=== PATIENT | male | born 1945 | race Caucasian/White ===

== ENCOUNTER 2019-11-17 00:18 | Inpatient (IN) | payer MEDICARE ==
[~2019-11-17] VITALS: Ht 182.9 cm; Wt 78.0 kg
--- NOTE | 2019-11-17 00:30 | NUR ---
Patient provided urine sample, sent to lab.
--- NOTE | 2019-11-17 00:35 | NUR ---
Dr. Velasquez at bedside for MSE.
--- NOTE | 2019-11-17 00:50 | NUR ---
Pt out of ER for CT.
[2019-11-17 00:52] LABS: *BILIRUBIN,URIN NEGATIVE (NEGATIVE); *BLOOD, URINE NEGATIVE (NEGATIVE); *CLARITY,URINE CLEAR (CLEAR); *COLOR,URINE YELLOW (YELLOW); *KETONES,URINE NEGATIVE (NEGATIVE); *UROBILINOGEN,URINE 0.2 E.U./dl (NORMAL); LEUKOCYTE ESTERASE ,URINE NEGATIVE (NEGATIVE); NITRITE, URINE NEGATIVE (NEGATIVE); PH,URINE 5.5 (5.0-8.0); UGLUCOSE NEGATIVE (NEGATIVE)
[2019-11-17 00:58] LABS: *AMPHETAMINE, URINE NEGATIVE (NEGATIVE); *BARBITURATE, URINE NEGATIVE (NEGATIVE); *CANNABINOID, URINE NEGATIVE (NEGATIVE); *COCCAINE, URINE NEGATIVE (NEGATIVE); *OPIATE, URINE NEGATIVE (NEGATIVE); *PHENCYCLIDINE SCREEN,URINE NEGATIVE (NEGATIVE)
[2019-11-17 01:01] LABS: BASOPHILS # (AUTO) 0.1 K/uL (0.0-8.0); BASOPHILS % (AUTO) 0.9 % (0.0-2.0); EOSINOPHILS # (AUTO) 0.5 K/uL (0.0-0.7); EOSINOPHILS % (AUTO) 7.1 % (0.0-7.0); HEMATOCRIT 41.2 % (36.7-47.1); LYMPHOCYTES # (AUTO) 1.9 K/uL (20.0-40.0); LYMPHOCYTES % (AUTO) 25.9 % (20.5-51.5); MEAN CORPUSCULAR HEMOGLOBIN 32.8 uug (23.8-33.4); MEAN CORPUSCULAR HGB CONC 34 g/dL (32.5-36.3); MEAN CORPUSCULAR VOLUME 96.5 fL (73.0-96.2); MONOCYTES # (AUTO) 0.7 K/uL (2.0-10.0); MONOCYTES % (AUTO) 8.9 % (0.0-11.0); NEUTROPHILS # (AUTO) 4.3 K/uL (1.8-8.9); NEUTROPHILS % (AUTO) 57.2 % (38.5-71.5); PLATELET COUNT (AUTO) 252 K/uL (152-348); RED BLOOD CELL COUNT(AUTO) 4.27 MIL/uL (4.06-5.63); WHITE BLOOD COUNT (AUTO) 7.4 K/uL (3.6-10.2)
--- NOTE | 2019-11-17 01:05 | NUR ---
Pt back to ER from CT.
[2019-11-17 01:10] LABS: CARBON DIOXIDE 26 mmol/L (21-32); CHLORIDE 107 mmol/L (98-107); GLUCOSE 118 mg/dL (74-106); POTASSIUM 3.7 mmol/L (3.5-5.1); UREA NITROGEN, BLOOD 19 mg/dL (7-18)
[2019-11-17 01:13] LABS: ETHANOL < 3 MG/DL (0-0)
[2019-11-17 01:16] LABS: ALANINE AMINOTRANSFERASE 22 U/L (16-63); ALKALINE PHOSPHATASE 104 U/L (50-136); ASPARTATE AMINOTRANSFERASE 23 U/L (15-37); BILIRUBIN,DIRECT 0.1 mg/dL (0.0-0.2); BILIRUBIN,TOTAL 0.4 mg/dL (0.2-1.0); TOTAL PROTEIN, SERUM 6.8 g/dL (6.4-8.2)
[2019-11-17 01:23] LABS: ACETAMINOPHEN < 2.0 ug/mL (10-30); THYROID STIMULATING HORMONE 3.291 mIU/mL (0.358-3.740)
--- NOTE | 2019-11-17 01:30 | NUR ---
Patient medically cleared by Dr. Velasquez.
[2019-11-17] MEDS ORDERED: ARIP15TA3 PO (02:33)
[2019-11-17] MEDS ORDERED: DOCU100C36 PO (02:34)
[2019-11-17] MEDS ORDERED: HEPA500034 SUBCUT (02:34)
[2019-11-17] MEDS ORDERED: DILT-32 PO (02:34)
[2019-11-17] MEDS ORDERED: ACET-2154 PO (02:34)
--- NOTE | 2019-11-17 07:13 | NUR ---
Report given to Merlene collinshift.
--- NOTE | 2019-11-17 08:30 | NUR ---
pt transfered to mhu in stable condition.
[2019-11-17 08:45] VITALS: BP 127/62
[2019-11-17] MEDS ORDERED: ZOLPIDEM 5 MG TABLET PO PRN (09:00)
[2019-11-17] MEDS ORDERED: ACETAMINOPHEN 325 MG TABLET PO PRN (09:00)
[2019-11-17] MEDS ORDERED: MAG HYDROX/AL HYDROX/SIMETH 30 ML LIQUID UDC PO PRN (09:00)
[2019-11-17] MEDS ORDERED: BLOOD SUGAR DIAGNOSTIC 1 EACH STRIP VI ONE (09:00)
[2019-11-17] MEDS ORDERED: MAGNESIUM HYDROXIDE 30 ML LIQUID UDC PO PRN (09:00)
--- NOTE | 2019-11-17 09:00 | NUR ---
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
[2019-11-17] MEDS ORDERED: ARIPIPRAZOLE 5 MG TABLET PO SCH (09:15)
[2019-11-17] MEDS ORDERED: ESCITALOPRAM OXALATE 10 MG TABLET PO SCH (09:15)
[2019-11-17] MEDS: ARIPIPRAZOLE 5 MG TABLET PO SCH ×2 (10:29→10:33)
[2019-11-17] MEDS: ESCITALOPRAM OXALATE 10 MG TABLET PO SCH (10:33)
[2019-11-17 15:48] VITALS: BP 114/55
[2019-11-17] MEDS: DOCUSATE SODIUM 100 MG CAPSULE PO SCH (17:29)
--- NOTE | 2019-11-17 17:33 | NUR ---
patient been calm, cooperative, minimizes his symptoms, patient seen interacting with staff and other resident
[2019-11-17 20:00] VITALS: BP 104/59
--- NOTE | 2019-11-18 05:42 | NUR ---
Patient slept 5 hours. Was up a few times during the night. At the beginning of the shift, patient appeared depressed but was not willing to elaborate. Patient denied having active suicidal thoughts. Sheep Farmer noticed patient trying to get involved and give advice to the nurses on how to care for other patients. At times this patient is confused as to why he is here and what is going on. Reorientation and redirection provided. No acute issues during the night. Continuing to have safety strategies in place and round Q 15 minutes in order to provide a safe environment for this patient.
[2019-11-18 07:11] LABS: BILIRUBIN,TOTAL 0.4 mg/dL (0.2-1.0); CREATININE 1.1 mg/dL (0.6-1.3); POTASSIUM 4.1 mmol/L (3.5-5.1); TOTAL PROTEIN, SERUM 6.2 g/dL (6.4-8.2)
[2019-11-18 07:30] VITALS: BP 133/72
--- NOTE | 2019-11-18 08:00 | NUR ---
Received patient AOx3, patient in his room, quiet, no distress, patient compliant with medication, patient seen by psychiatrist , patient ate his breakfast, will continue monitor
[2019-11-18] MEDS: ARIPIPRAZOLE 5 MG TABLET PO SCH (08:21)
[2019-11-18] MEDS: ESCITALOPRAM OXALATE 10 MG TABLET PO SCH (08:22)
[2019-11-18] MEDS: DILTIAZEM HCL CD 120 MG CAP.SR.24H PO SCH (08:22)
[2019-11-18] MEDS: DOCUSATE SODIUM 100 MG CAPSULE PO SCH ×2 (08:22→17:00)
[2019-11-18] MEDS: ENSURE ENLIVE (VAN) 240 ML LIQUID PO SCH (09:00)
--- NOTE | 2019-11-18 12:05 | NUR ---
CYNDEE Initial Discharge Plan: Patient currently resides at home [address] [place] [address], [place] [address] ([phone]). Patient would like to go back home when he is ready for discharge. CYNDEE spoke with patient's sister, Lakshmi Lama ([phone]) who stated that would like patient to return home and will pick him up at time of discharge. CYNDEE will continue to work with patient, family, and MD to ensure a safe and proper discharge plan.
--- NOTE | 2019-11-18 12:46 | NUR ---
CYNDEE Family Contact: CYNDEE spoke with patient's sister, Lakshmi Lama ([phone]) who stated that would like patient to return home and will pick him up at time of discharge. SW will continue to work with patient, family, and MD to ensure a safe and proper discharge plan.
--- NOTE | 2019-11-18 13:12 | NUR ---
Firearms Report: Public Improvement Inspector completed and submitted a [employer] firearms report for 5150 danger to himself certification. A copy of report has been placed in patient chart.
[2019-11-18 16:00] VITALS: BP 132/53
--- NOTE | 2019-11-18 17:38 | NUR ---
patient been calm cooperative, pacing in hallway this afternoon, guarded, minimizes his symptoms, patient participates with group therapy and ate his meals, patient has a tendency to be intrusive and needed to be redirected, patient denies SI ans HI
[2019-11-18 20:08] VITALS: BP 130/63
[2019-11-19 07:30] VITALS: BP 103/56
[2019-11-19] MEDS: ENSURE ENLIVE (VAN) 240 ML LIQUID PO SCH (09:00)
[2019-11-19] MEDS: ESCITALOPRAM OXALATE 10 MG TABLET PO SCH (10:23)
[2019-11-19] MEDS: DILTIAZEM HCL CD 120 MG CAP.SR.24H PO SCH (10:26)
[2019-11-19] MEDS: DOCUSATE SODIUM 100 MG CAPSULE PO SCH ×2 (10:27→17:34)
[2019-11-19] MEDS ORDERED: ARIPIPRAZOLE 5 MG TABLET PO ONE (10:29)
[2019-11-19 20:00] VITALS: BP 108/54
[2019-11-20 07:30] VITALS: BP 117/65
[2019-11-20] MEDS: DILTIAZEM HCL CD 120 MG CAP.SR.24H PO SCH (09:26)
[2019-11-20] MEDS: ARIPIPRAZOLE 5 MG TABLET PO SCH (09:27)
[2019-11-20] MEDS: ESCITALOPRAM OXALATE 10 MG TABLET PO SCH (09:27)
[2019-11-20] MEDS: DOCUSATE SODIUM 100 MG CAPSULE PO SCH ×2 (09:27→17:17)
[2019-11-20] MEDS: ENSURE ENLIVE (VAN) 240 ML LIQUID PO SCH (09:28)
[2019-11-20] MEDS ORDERED: ARIPIPRAZOLE 5 MG TABLET PO ONE (10:29)
[2019-11-20 16:00] VITALS: BP 133/75
[2019-11-20 20:00] VITALS: BP 123/64
[2019-11-21 07:30] VITALS: BP 102/59
[2019-11-21] MEDS: ARIPIPRAZOLE 5 MG TABLET PO SCH ×2 (08:52→12:43)
[2019-11-21] MEDS: ESCITALOPRAM OXALATE 10 MG TABLET PO SCH (08:52)
[2019-11-21] MEDS: DOCUSATE SODIUM 100 MG CAPSULE PO SCH ×2 (08:52→16:35)
[2019-11-21] MEDS: DILTIAZEM HCL CD 120 MG CAP.SR.24H PO SCH (09:58)
[2019-11-21] MEDS: ENSURE ENLIVE (VAN) 240 ML LIQUID PO SCH (09:58)
[2019-11-21 16:00] VITALS: BP 127/55
[2019-11-21 21:28] VITALS: BP 112/56
--- NOTE | 2019-11-22 06:50 | NUR ---
Patient slept 5.30 hours last night. Refused a sleeping medication when offered. At on point , the advertising copy writer noticed patient sitting up in the bed staring at the clock on the wall for quite some time. When asked if he was okay he stated " I am just trying to figure out what time it is. I can not tell the time right now'. Patient seems a/o x 3-4, but does get forgetful and confused during the night. Continuing to monitor patient for safety and reorient patient when needed. No acute distress noted at this time.
[2019-11-22 07:30] VITALS: BP 126/66
[2019-11-22] MEDS: DOCUSATE SODIUM 100 MG CAPSULE PO SCH ×2 (08:31→16:22)
[2019-11-22] MEDS: ARIPIPRAZOLE 5 MG TABLET PO SCH ×2 (08:31→12:27)
[2019-11-22] MEDS: DILTIAZEM HCL CD 120 MG CAP.SR.24H PO SCH (08:32)
[2019-11-22] MEDS: ENSURE ENLIVE (VAN) 240 ML LIQUID PO SCH (08:34)
[2019-11-22 16:31] VITALS: BP 121/78
[2019-11-22 20:00] VITALS: BP 124/61
--- NOTE | 2019-11-23 02:44 | NUR ---
RECEIVED PATIENT IN ACTIVITY ROOM. GUARDED,MOOD LOW BUT COOPERATIVE WITH HIS CARE. DENIES SI/HI.VISUAL CHECKS MADE ON HIM FOR SAFETY. WILL CONTINUE TO MONITOR.
--- NOTE | 2019-11-23 06:51 | NUR ---
HE SLEPT FOR 7:00 HOURS.
[2019-11-23] MEDS: DOCUSATE SODIUM 100 MG CAPSULE PO SCH ×2 (08:47→17:10)
[2019-11-23] MEDS: DILTIAZEM HCL CD 120 MG CAP.SR.24H PO SCH (08:47)
[2019-11-23] MEDS: ARIPIPRAZOLE 5 MG TABLET PO SCH ×2 (08:47→12:56)
[2019-11-23] MEDS: ENSURE ENLIVE (VAN) 240 ML LIQUID PO SCH (08:48)
[2019-11-23 09:29] VITALS: BP 121/64
--- NOTE | 2019-11-23 09:58 | NUR ---
PC Hearing: Patient had his probable cause hearing today and it was upheld for grave disability.
[2019-11-23 16:00] VITALS: BP 122/56
[2019-11-23 20:00] VITALS: BP 138/58
--- NOTE | 2019-11-24 05:56 | NUR ---
Received Pt in bed sleeping, arouses easily. A+Ox2-3, pleasant and friendly on approach. Appears tired and somewhat lethargic. Pt has poor insight into the events that brought him to the hospital and states he "doesn't remember what happened, but I never wanted to kill myself." Pt is isolative and withdrawn, seclusive to his room, but denies depression or anxiety. Pt encouraged to attend groups and interact with the milieu. Denies SI/HI and verbally contracts for safety. Denies AH/VH. VS stable.
[2019-11-24 06:53] LABS: BASOPHILS # (AUTO) 0.1 K/uL (0.0-8.0); BASOPHILS % (AUTO) 0.7 % (0.0-2.0); EOSINOPHILS # (AUTO) 0.2 K/uL (0.0-0.7); EOSINOPHILS % (AUTO) 1.8 % (0.0-7.0); HEMOGLOBIN 13.9 g/dL (12.5-16.3); LYMPHOCYTES % (AUTO) 31.7 % (20.5-51.5); MEAN CORPUSCULAR HEMOGLOBIN 32.5 uug (23.8-33.4); MEAN CORPUSCULAR HGB CONC 33 g/dL (32.5-36.3); MEAN CORPUSCULAR VOLUME 98.1 fL (73.0-96.2); MONOCYTES # (AUTO) 0.9 K/uL (2.0-10.0); NEUTROPHILS # (AUTO) 5.2 K/uL (1.8-8.9); NEUTROPHILS % (AUTO) 55.8 % (38.5-71.5); PLATELET COUNT (AUTO) 322 K/uL (152-348); RED BLOOD CELL COUNT(AUTO) 4.28 MIL/uL (4.06-5.63); WHITE BLOOD COUNT (AUTO) 9.4 K/uL (3.6-10.2)
[2019-11-24 07:34] LABS: BILIRUBIN,TOTAL 0.4 mg/dL (0.2-1.0); CREATININE 1.1 mg/dL (0.6-1.3); MAGNESIUM 2.5 mg/dL (1.8-2.4); PHOSPHOROUS 3.2 mg/dL (2.5-4.9); POTASSIUM 3.8 mmol/L (3.5-5.1); TOTAL PROTEIN, SERUM 7.7 g/dL (6.4-8.2)
[2019-11-24 07:51] VITALS: BP 130/73
[2019-11-24] MEDS: DILTIAZEM HCL CD 120 MG CAP.SR.24H PO SCH (08:34)
[2019-11-24] MEDS: ARIPIPRAZOLE 5 MG TABLET PO SCH ×3 (08:35→16:33)
[2019-11-24] MEDS: DOCUSATE SODIUM 100 MG CAPSULE PO SCH ×2 (08:35→16:33)
[2019-11-24] MEDS: ENSURE ENLIVE (VAN) 240 ML LIQUID PO SCH (08:35)
--- NOTE | 2019-11-24 11:02 | NUR ---
CYNDEE Individual Intervention: SW met with patient and provided brief individual counseling to help patient gain insight towards his presenting problems. Patient presents with disorganized thought process, confused and disheveled. Patient stated "I don't know what is going on". This filing writer oriented patient to reality and his current situation. Patient stated "I am not suicidal, I don't want to kill myself". SW acknowledged patient feelings and provided empathy and acceptance. SW discussed safety planning with the patient.
[2019-11-24 16:04] VITALS: BP 117/55
[2019-11-24 19:47] VITALS: BP 136/66
[2019-11-25 07:30] VITALS: BP 119/62
[2019-11-25] MEDS: DOCUSATE SODIUM 100 MG CAPSULE PO SCH ×2 (08:15→17:52)
[2019-11-25] MEDS: ARIPIPRAZOLE 5 MG TABLET PO SCH (08:15)
[2019-11-25] MEDS: DILTIAZEM HCL CD 120 MG CAP.SR.24H PO SCH (08:16)
[2019-11-25] MEDS: ENSURE ENLIVE (VAN) 240 ML LIQUID PO SCH (08:16)
[2019-11-25] MEDS: risperiDONE 2 MG TABLET PO SCH ×2 (09:09→17:52)
[2019-11-25] MEDS: LITHIUM CARBONATE 300 MG CAPSULE PO SCH ×2 (09:09→20:50)
[2019-11-25] MEDS: LORAZEPAM 0.5 MG TABLET PO PRN ×2 (10:05→11:31)
--- NOTE | 2019-11-25 10:28 | NUR ---
patient becoming anxious. patient talking about "he doesnt want to be responsible anymore" and that "nothing matters". patient becoming more agitated with stimulation and wants to leave or be by himself. patient sitting in room. refused prn medication at this time.
--- NOTE | 2019-11-25 11:05 | NUR ---
second attempt to give prn medication. patient is refusing. patient is staying in his room for now, remains speaking to self that he needs to leave.
[2019-11-25 16:00] VITALS: BP 113/51
[2019-11-25 20:51] VITALS: BP 116/56
[2019-11-26 08:00] VITALS: BP 98/52
[2019-11-26] MEDS: ENSURE ENLIVE (VAN) 240 ML LIQUID PO SCH (08:20)
[2019-11-26] MEDS: DOCUSATE SODIUM 100 MG CAPSULE PO SCH ×2 (08:20→16:43)
[2019-11-26] MEDS: LITHIUM CARBONATE 300 MG CAPSULE PO SCH ×2 (08:20→20:13)
[2019-11-26] MEDS: risperiDONE 2 MG TABLET PO SCH ×2 (08:20→16:43)
[2019-11-26] MEDS: DILTIAZEM HCL CD 120 MG CAP.SR.24H PO SCH (08:21)
--- NOTE | 2019-11-26 12:07 | NUR ---
Patient is guarded, withdrawn, and anxious. He is interactive with staff and interacts appropriately. Patient has delusions that if he goes into the hallway "i'll do what I did last time and kill them all." He appears afraid. Patient is able to answer assessment questions but then immediately goes into a completely different topic, frequently talking about "the Jews and Christians that I wasn't able to save". Patient denies SI/HI, denies AH/Vh but he appears internally preoccupied. Patient provided with reality orientation and redirection multiple times. provided with education about impulse control and how to communicate needs to staff appropriately. patient is adherent with medication, no adverse reaction noted.
[2019-11-26 15:11] VITALS: BP 100/49
--- NOTE | 2019-11-26 15:32 | NUR ---
CYNDEE Family Contact: CYNDEE spoke with patient's sister Lakshmi ([phone]) regarding his discharge plan for early next week and she stated she will pick him up.
[2019-11-26 20:00] VITALS: BP 104/68
--- NOTE | 2019-11-27 06:59 | NUR ---
patient slept for approx. 6.30hrs through the night. will continue to monitor.
[2019-11-27 07:30] VITALS: BP 115/57
[2019-11-27] MEDS: ENSURE ENLIVE (VAN) 240 ML LIQUID PO SCH (09:00)
[2019-11-27] MEDS: LITHIUM CARBONATE 300 MG CAPSULE PO SCH ×2 (10:19→20:13)
[2019-11-27] MEDS: DOCUSATE SODIUM 100 MG CAPSULE PO SCH ×2 (10:19→16:49)
[2019-11-27] MEDS: risperiDONE 2 MG TABLET PO SCH ×2 (10:20→16:50)
[2019-11-27] MEDS: DILTIAZEM HCL CD 120 MG CAP.SR.24H PO SCH (10:20)
[2019-11-27 16:00] VITALS: BP 103/60
[2019-11-27 20:18] VITALS: BP 102/57
[2019-11-28 07:30] VITALS: BP 108/65
[2019-11-28] MEDS: LITHIUM CARBONATE 300 MG CAPSULE PO SCH ×2 (09:52→20:17)
[2019-11-28] MEDS: risperiDONE 2 MG TABLET PO SCH ×2 (09:52→17:53)
[2019-11-28] MEDS: DILTIAZEM HCL CD 120 MG CAP.SR.24H PO SCH (09:52)
[2019-11-28] MEDS: DOCUSATE SODIUM 100 MG CAPSULE PO SCH ×2 (09:52→17:53)
[2019-11-28] MEDS: ENSURE ENLIVE (VAN) 240 ML LIQUID PO SCH (09:55)
[2019-11-28 16:00] VITALS: BP 106/54
[2019-11-28 20:19] VITALS: BP 105/56
--- NOTE | 2019-11-29 06:09 | NUR ---
GPS:patient Remain calm and cooperative, patient denies SI ans HI slept 6.30 hrs through the night. resting in bed comfortably.
[2019-11-29 07:30] VITALS: BP 103/60
[2019-11-29] MEDS: LITHIUM CARBONATE 300 MG CAPSULE PO SCH ×2 (08:33→20:18)
[2019-11-29] MEDS: DOCUSATE SODIUM 100 MG CAPSULE PO SCH ×2 (08:33→17:13)
[2019-11-29] MEDS: risperiDONE 2 MG TABLET PO SCH ×2 (08:34→17:13)
[2019-11-29] MEDS: DILTIAZEM HCL CD 120 MG CAP.SR.24H PO SCH (08:34)
[2019-11-29] MEDS: ENSURE ENLIVE (VAN) 240 ML LIQUID PO SCH (08:35)
[2019-11-29 16:53] VITALS: BP 109/52
--- NOTE | 2019-11-29 18:49 | NUR ---
Received pt awake, calm on approach, particiapates in groups, comes to the dinning room an interacts. Pt is compliant with medications. Pt is denying S/I.
[2019-11-29 20:18] VITALS: BP 120/53
--- NOTE | 2019-11-30 03:02 | NUR ---
RECEIVED PATIENT INTERACTING WITH PEERS IN ACTIVITY ROOM. MOOD APPEARS LOW BUT DENIES SI/AH.HE IS MEDICATION COMPLIANT. VISUAL CHECKS MADE ON HIM FOR SAFETY. WILL CONTINUE TO MONITOR.
--- NOTE | 2019-11-30 06:31 | NUR ---
HE SLEPT FOR 6:30HOURS
[2019-11-30 07:30] VITALS: BP 115/58
[2019-11-30] MEDS: ENSURE ENLIVE (VAN) 240 ML LIQUID PO SCH (08:10)
[2019-11-30] MEDS: DILTIAZEM HCL CD 120 MG CAP.SR.24H PO SCH (08:10)
[2019-11-30] MEDS: risperiDONE 2 MG TABLET PO SCH ×2 (08:19→16:51)
[2019-11-30] MEDS: DOCUSATE SODIUM 100 MG CAPSULE PO SCH ×2 (08:19→16:51)
[2019-11-30] MEDS: LITHIUM CARBONATE 300 MG CAPSULE PO SCH ×2 (08:19→20:21)
--- NOTE | 2019-11-30 09:30 | NUR ---
CYNDEE FAMILY CONTACT: CYNDEE contacted patient's sister Lakshmi ([phone]) regarding his discharge for tomorrow Saturday12/01/19. CYNDEE left voicemail for callback.
--- NOTE | 2019-11-30 12:23 | NUR ---
Patient is calm, cooperative, and has appropriate interaction with staff. he is dressed appropriately. patient denies SI/HI, denies AH/VH. he is adherent with medication, no adverse reaction noted. Patient is visible on the unit and has appropriate participation in the unit milieu.
--- NOTE | 2019-11-30 13:06 | NUR ---
CYNDEE FAMILY CONTACT: CYNDEE contacted patient's sister Lakshmi ([phone]) regarding pts discharge for tomorrow Saturday12/01/19. Sister states she is unable to pick pt up and believes he is not ready fro discharge. She states that pt is lying and states that he should stay in the hospital longer. CYNDEE informed her that pt is currently denying suicidal ideation and visual/auditory hallucinations and per psychiatrist evaluation pt no longer meets criteria for continued acute psychiatric hospitalization. Sister then stated if SW can find alternative transportation and SW stated sister would be responsible for pay. Sister agreed and requested a quote. CYNDEE will call back with a quote for [employer].
--- NOTE | 2019-11-30 13:24 | NUR ---
CYNDEE FAMILY CONTACT: CYNDEE contacted patient's sister Lakshmi ([phone]) to inform her of [employer] quote of $187.15, sister agreed with raines then asked SW to text her with the information, SW stated that she was unable to text her and then sister stated, "then I don't know what to tell you" and hung up the phone.
--- NOTE | 2019-11-30 13:57 | NUR ---
CYNDEE INDIVIDUAL INTERVENTION: SW met with pt at bedside to assess suicidality, pt denies suicidal ideation and denies visual/auditory hallucinations and states he is ready to be discharged home. SW informed him of conversation that SW had with his sister. Pt states that SW should not coordinate his discharge with her as he is self responsible and she is not his DPOA. SW confirmed his discharge for tomorrow via taxi. pt agreed. Pt presents alert and oriented x4 and is ambulatory.
[2019-11-30 15:38] VITALS: BP 110/55
[2019-11-30 20:34] VITALS: BP 116/56
--- NOTE | 2019-12-01 02:37 | NUR ---
RECEIVED PATIENT INTERACTING WITH PEERS IN ACTIVITY ROOM. CALM AND COOPERATIVE. DENIES SI/AH. HE IS MEDICATION COMPLIANT. VISUAL CHECKS MADE ON HIM FOR SAFETY. WILL CONTINUE TO MONITOR.
--- NOTE | 2019-12-01 06:36 | NUR ---
HE SLEPT FOR 7:30 HOURS.
[2019-12-01 07:30] VITALS: BP 101/51
[2019-12-01] MEDS: LITHIUM CARBONATE 300 MG CAPSULE PO SCH (08:30)
[2019-12-01] MEDS: DOCUSATE SODIUM 100 MG CAPSULE PO SCH (08:30)
[2019-12-01 08:31] VITALS: BP 101/51
[2019-12-01] MEDS: DILTIAZEM HCL CD 120 MG CAP.SR.24H PO SCH (08:31)
[2019-12-01] MEDS: risperiDONE 2 MG TABLET PO SCH (08:31)
--- NOTE | 2019-12-01 08:50 | NUR ---
DISCHARGE PLAN: Pt will be discharged Home [address] [place] [address], [place] [address]; via [employer]. Pts sister, Lakshmi ([phone]) has been notified. Pts mood is anxious with congruent affect. Pt denies visual/auditory hallucinations and denies suicidal/homicidal ideation. Pt is alert and oriented x4, to self, place, time, and situation. Pt appears appropriately dressed and groomed and is ambulatory. Pt will follow up with Psychiatrist: Dr. Curtis Espinoza [address] [place] [address] ([phone]) on Saturday12/14/19 at 11:00am and Auto Radiator Mechanic Dr. Roselyn Dalton [address] [place] [phone] ([phone]) on Saturday12/18/19 at 2:00pm. The multidisciplinary exit care form was done, printed, signed, and given to the patient. Addendum: 12/01/19 at 0855 by KIRAN COTTER ERROR NOTE
--- NOTE | 2019-12-01 08:55 | NUR ---
DISCHARGE NOTE: Pt will be discharged Home [address] [place] [address], [place] [address]; via [employer]. Pts sister, Lakshmi ([phone]) has been notified. Pts mood is anxious with congruent affect. Pt denies visual/auditory hallucinations and denies suicidal/homicidal ideation. Pt is alert and oriented x4, to self, place, time, and situation. Pt appears appropriately dressed and groomed and is ambulatory. Pt will follow up with Psychiatrist: Dr. Curtis Espinoza [address] [place] [phone] ([phone]) on Saturday12/14/19 at 11:00am and Chair Trimmer Dr. Roselyn Dalton [address] [place] [phone]) on Saturday12/18/19 at 2:00pm. The multidisciplinary exit care form was done, printed, signed, and given to the patient.
[2019-12-01] MEDS: ENSURE ENLIVE (VAN) 240 ML LIQUID PO SCH (09:29)
--- NOTE | 2019-12-01 10:22 | NUR ---
Pt will be discharged Home via taxi. all personal belonging returned to patient Pt will follow up with Psychiatrist: Dr. Curtis Espinoza [address] [place] [address] ([phone]) on Saturday12/14/19 at 11:00am and Med Dir Dr. Roselyn Dalton [address] [place] [address] ([phone]) on Saturday12/18/19 at 2:00pm. The multidisciplinary exit care form was done, printed, signed, and given to the patient.
== END 2019-12-01 11:30 | disposition home or self-care (01) | DRG 885 ==
LOC: ER 00:24 → GPS 08:17
PROVIDERS: ADMIT Psychiatry & Neurology Psychiatry; ATTEND Internal Medicine
PROC: 0HBRXZZ Excision of Toe Nail, External Approach (ICD-10-PCS; principal; 2019-11-18)
DX: F31.5 Bipolar disorder, current episode depressed, severe, with psychotic features (principal); E43 Unspecified severe protein-calorie malnutrition; M20.42 Other hammer toe(s) (acquired), left foot; M20.41 Other hammer toe(s) (acquired), right foot; L60.3 Nail dystrophy; R62.7 Adult failure to thrive; I10 Essential (primary) hypertension; I70.0 Atherosclerosis of aorta; M79.672 Pain in left foot; M79.671 Pain in right foot; Z68.23 Body mass index [BMI] 23.0-23.9, adult
CPT/HCPCS: 36415; 70030-TC; 70450; 71045; 80307; 83735; 84100; 84443; 84481; 85025; 93005; A4663; G0480; G0480-TC